=== PATIENT | male | born 1955 | race Caucasian/White ===

== ENCOUNTER → 2018-06-22 13:40 | Outpatient (CLI) | payer MEDICARE, SELFPAY ==
[2018-06-22 14:05] LABS: Basophils % 0.3 % (0.1-2.0); Eosinophils % 0.6 % (0.1-12.0); Hematocrit 39.3 % (42.0-52.0); Hemoglobin 12.5 g/dL (14.1-18.0); Lymphocytes # 0.7 K/mm3 (0.7-4.5); Lymphocytes % 18.9 % (10-50); Mean Corpuscular HGB Conc 31.8 g/dL (31.8-35.4); Mean Corpuscular Hemoglobin 30.5 pg (27.0-31.2); Mean Corpuscular Volume 96.1 fl (80-94); Mean Platelet Volume 7.4 fl (7.4-10.4); Monocytes # 0.3 K/mm3 (0.1-1.0); Neutrophils # 2.6 K/mm3 (1.8-7.8); Neutrophils % 72.3 % (37.0-80.0); Platelet Count 288 K/mm3 (142-424); Red Blood Count 4.09 M/mm3 (4.60-6.20); Red Cell Distribution Width 14.2 % (11.5-17.5); White Blood Count 3.6 K/mm3 (4.8-10.8)
[2018-06-22 14:55] LABS: Alanine Aminotransferase 23 U/L (12-78); Albumin Level 3.9 gm/dL (3.4-5.0); Albumin/Globulin Ratio 1.1 (1.1-1.8); Alkaline Phosphatase 76 U/L (46-116); Anion Gap 10.6 mEq/L (5-15); Aspartate Amino Transferase 12 U/L (15-37); Bilirubin,Total 0.4 mg/dL (0.2-1.0); Blood Urea Nitrogen 12 mg/dL (7-18); Calcium 9.3 mg/dL (8.5-10.1); Carbon Dioxide 31 mmol/L (21.0-32.0); Chloride 103 mmol/L (98-107); Chol/HDL Ratio 3.5 (1-3.5); Cholesterol 172 mg/dL (140-200); Creatinine,Serum 1.17 mg/dL (0.70-1.30); Estimated Glomerular Filt Rate 63 ml/min (>60); GFR (African American) 76 ML/MIN (>60); Globulin 3.4 gm/dl (1.3-3.2); Glucose 106 mg/dL (74-106); HDL Cholesterol 49 mg/dL (27-67); LDL Cholesterol 107 mg/dL (0-130); Potassium 4.6 mmoL/L (3.5-5.1); Sodium 140 mmol/L (136-145); T4 (Thyroxine) 7.2 ug/dl (4.7-13.3); Thyroid Stimulating Hormone 4.52 uIU/ml (0.358-3.740); Total Protein,Serum 7.3 gm/dL (6.4-8.2); Triglycerides 79 mg/dL (30-200); VLDL Cholesterol 16 mg/dL (0-40)
== END ==
PROVIDERS: Visit Provider Nurse Practitioner Family
DX: I10 Essential (primary) hypertension (principal); R53.83 Other fatigue; R22.1 Localized swelling, mass and lump, neck
CPT/HCPCS: 80053; 80061; 82652; 84436; 84443; 85025

== ENCOUNTER → 2018-07-03 14:46 | Outpatient (CLI) | payer MEDICARE, SELFPAY ==
--- NOTE | 2018-07-03 14:47 | US_ITS ---
US soft tissue head and neck Ordering Physician: Carol Ann Berrios Patient Age: 62 years: Male HISTORY: ITS.REASON: nodulepalpable area right inferior neck TECHNIQUE: Ultrasound soft tissues the neck MW? COMPARISON :CT cervical spine April 2012 FINDINGS The significant finding is a ovoid mixed density nodule along the posterior inferior aspect of the right lobe thyroid. On today's ultrasound this measures up to 2 cm length x 1.5 cm AP x 1.6 cm transverse. It is primarily a solid mass but with with at least 3 scattered debris-filled cysts within it centrally in each each measuring 5-6 mm size. On close evaluation of the sagittal images of of the 2012 CT C-spine on that prior 2012 study sagittal image 32, 31, there appears to be is a similar density indenting posterior right lobe of thyroid, which measured up to 2 cm including be vaguely seen retrospect. This would tend to support this is more likely a benign entity.... It again is noted to have a matching concavity along the thyroid gland overlying the thus this mass likely arises from thyroid or parathyroid. It appears that Today's study requested ultrasound of the neck and with this the remainder the neck were closely surveyed including salivary glands, but it did not include optimal full thyroid ultrasound evaluation. A CT neck with could further evaluate and addition support stability and better delineate adjacent great vessels..- However if if preferred may want to proceed follow-up complete thyroid ultrasound, immediate followed by ultrasound-guided FNA biopsy of this nodule... I would note Nodule rather low & appears, with carotid artery immediate along its lateral margin of provide a somewhat narrow target for FNA biopsy but will likely be feasible.... Again I would note that its relative stability since 2012 CT C-spine support its more likely benign nature The overlying right thyroid gland has a convex posterior margin which accommodates this nodule/mass.. Only limited views of the right thyroid, which are unremarkable. The submandibular and parotid glands were imaged and measured with no significant findings identified here The right submandibular gland imaged and unremarkable appears normal size at 3.7 cm length. . The right parotid gland imaged and unremarkable up to 4 cm maximally The left submandibular gland with image measured 3.1 cm in length.. Duct here upper normal prominence. . Left parotid measures 3.55 cm in length &. Unremarkable No additional findings nor adenopathy imaged at survey of the remainder of the neck neck IMPRESSION... there is a 2 cm x 1.5 cm ovoid mixed density mass along the posterior aspect right lobe thyroid. This is mainly solid but with at least 3 or 4 small cystic area centrally. In retrospect I believe this is likely present & appears fairly stable since April 2012 CT C-spine. This supports it is most likely benign, indolent nature. Suggest either follow-up CT with contrast,... OR if preferred proceeding to complete thyroid ultrasound with subsequent FNA biopsy. Note comments in text (Thyroid was not fully imaged today; other areas the neck were surveyed & other salivary glands were imaged and detail but not thyroid)
== END ==
PROVIDERS: PCP Nurse Practitioner Family; Visit Provider Nurse Practitioner Family
DX: R22.1 Localized swelling, mass and lump, neck (principal)
CPT/HCPCS: 76536

== ENCOUNTER → 2018-07-12 13:17 | Outpatient (CLI) | payer MEDICARE, SELFPAY ==
[2018-07-12 13:59] LABS: Basophils % 0.3 % (0.1-2.0); Eosinophils % 0.8 % (0.1-12.0); Hematocrit 40.4 % (42.0-52.0); Hemoglobin 12.9 g/dL (14.1-18.0); Lymphocytes # 0.7 K/mm3 (0.7-4.5); Lymphocytes % 18.5 % (10-50); Mean Corpuscular Hemoglobin 30.8 pg (27.0-31.2); Mean Corpuscular Volume 96.3 fl (80-94); Mean Platelet Volume 8.3 fl (7.4-10.4); Monocytes # 0.3 K/mm3 (0.1-1.0); Monocytes % 8.5 % (1.7-9.3); Neutrophils # 2.8 K/mm3 (1.8-7.8); Platelet Count 263 K/mm3 (142-424); Red Cell Distribution Width 13.8 % (11.5-17.5); White Blood Count 3.9 K/mm3 (4.8-10.8)
== END ==
PROVIDERS: Visit Provider Physician Assistant
DX: D72.9 Disorder of white blood cells, unspecified (principal)
CPT/HCPCS: 85025

== ENCOUNTER → 2018-07-24 12:24 | Outpatient (CLI) | payer MEDICARE, SELFPAY ==
--- NOTE | 2018-07-24 13:30 | US_ITS ---
US thyroid HISTORY: Thyroid nodule ITS.REASON: nodule, or nodules seen on recent ultrasound of the neck ORDERING PHYSICIAN: Carol Ann Berrios PATIENT AGE: 62 years Comparison: None FINDINGS: Right lobe: 3.6 x 0.7 x 1.6 cm. There is a dominant 2 x 1.5 cm hypoechoic nodule with some internal cystic areas along the posterior aspect of the right lobe of the thyroid gland. A neck cystic and solid nodule is present along the upper pole at 7 x 4 mm. The left lobe is 3.4 x 1.3 x 1.6 cm. There is a 3 mm mixed hypoechoic nodule in the mid polar region on the left. IMPRESSION: Dominant 2 x 1.5 cm well-circumscribed hypoechoic nodule along the mid and posterior aspect of the right lobe of the thyroid gland. Some of this nodule is exophytic in nature. Fine-needle aspiration could be performed by sonographic guidance of clinically warranted.
== END ==
PROVIDERS: PCP Nurse Practitioner Family; Visit Provider Nurse Practitioner Family
DX: E04.1 Nontoxic single thyroid nodule (principal)
CPT/HCPCS: 76536

== ENCOUNTER → 2018-08-07 15:37 | Outpatient (CLI) | payer MEDICARE, SELFPAY ==
[2018-08-07 16:33] LABS: Basophils % 0.4 % (0.1-2.0); Eosinophils # 0.1 K/mm3 (0.0-0.4); Eosinophils % 1.2 % (0.1-12.0); Hematocrit 37.5 % (42.0-52.0); Hemoglobin 12.2 g/dL (14.1-18.0); Mean Corpuscular HGB Conc 32.4 g/dL (31.8-35.4); Mean Corpuscular Hemoglobin 30.9 pg (27.0-31.2); Mean Corpuscular Volume 95.3 fl (80-94); Monocytes # 0.4 K/mm3 (0.1-1.0); Monocytes % 7.7 % (1.7-9.3); Neutrophils # 3.1 K/mm3 (1.8-7.8); Neutrophils % 68.5 % (37.0-80.0); Platelet Count 270 K/mm3 (142-424); Red Blood Count 3.94 M/mm3 (4.60-6.20); Red Cell Distribution Width 13.5 % (11.5-17.5); White Blood Count 4.5 K/mm3 (4.8-10.8)
[2018-08-07 17:09] LABS: Free T4 (Free Thyroxine) 0.93 ng/dl (0.76-1.46); Thyroid Stimulating Hormone 4.81 uIU/ml (0.358-3.740)
[2018-08-09 08:43] LABS: Thyroid Peroxidase Antibodies <6 IU/mL (0-34)
[2018-08-11 07:23] LABS: Calcitonin 4.3 pg/mL (0.0-8.4); Thyroid Stimulating Immunoglob <0.10 IU/L (0.00-0.55)
== END ==
PROVIDERS: Visit Provider Otolaryngology
DX: I10 Essential (primary) hypertension (principal); E04.1 Nontoxic single thyroid nodule; S20.211A Contusion of right front wall of thorax, initial encounter
CPT/HCPCS: 36415; 82308; 84439; 84443; 84445; 85025; 86376

== ENCOUNTER → 2018-08-31 09:13 | Outpatient (CLI) | payer MEDICARE, SELFPAY ==
--- NOTE | 2018-08-31 09:22 | US_ITS ---
US FNA Thyroid HISTORY: Dominant right thyroid nodule ITS.REASON: RT THYROID NODULE ORDERING PHYSICIAN: Joshua New MD PATIENT AGE: 62 years COMPARISON: None TECHNIQUE: Following obtaining informed consent, using aseptic technique and local anesthesia with buffered lidocaine, fine-needle aspiration was performed of the nodule of interest using sonographic guidance. 3 passes were made into the nodule with a 25-gauge needle. Specimen was given to cytology. The patient tolerated the procedure well without evidence of immediate complications and left the ultrasound suite in stable condition. CYTOLOGY:Nondiagnostic specimen IMPRESSION: Uneventful fine-needle aspiration of the right thyroid nodule. Specimen however is nondiagnostic. Repeat FNA could be performed with sonographic guidance with pathologist present if clinically desired
== END ==
PROVIDERS: PCP Emergency Medicine; Visit Provider Otolaryngology
DX: E04.1 Nontoxic single thyroid nodule (principal)
CPT/HCPCS: 10005; 76536; 88173

== ENCOUNTER → 2018-09-29 07:09 | Outpatient (CLI) | payer MEDICARE, SELFPAY ==
--- NOTE | 2018-09-29 07:11 | NM_ITS ---
CARDIOLITE SPECT MYOCARDIAL PERFUSION EXERCISE, REST AND STRESS: History: Hypertension, family history, shortness of breath, palpitations and fatigue Procedure: Patient exercised on Pasquale protocol for 7 minutes, resting heart rate was 59 bpm resting blood pressure 142/80, with exercise maximum heart rate achieved was 1 57 bpm which is greater than 85% of the maximum predicted heart rate and a blood pressure was 166/83. Test was stopped due to shortness of breath, patient has good exercise capacity achieved 12.2METS of workload on treadmill, the blood pressure response to exercise was adequate. Electrocardiogram: Resting electrocardiogram shows sinus bradycardia, with exercise occasional premature ventricular complex present, less than 1.[address] segment depression noted from the baseline EKG. The EKG portion of the exercise Myoview is negative for ischemia. Cardiac stress and resting SPECT images: Cardiac stress and resting SPECT images were obtained using technetium 99 Myoview 32.3 mCi stress and 10.7 mCi at rest. Gated SPECT further analysis of segmental wall motion and calculation of the ejection fraction also done. Cardiac stress and resting SPECT images show uniform myocardial activity without segmental perfusion abnormality, computer derived ejection fraction is 46% with no regional wall motion abnormality, right ventricle is normal size and contractility. Conclusion: 1. The EKG portion of the exercise Myoview is negative for ischemia, patient has good exercise capacity achieved 12.2mets of workload on treadmill, the blood pressure response to exercise was adequate, there was no exercise-induced chest discomfort. 2. No scintigraphic evidence of reversible ischemia seen, computer derived ejection fraction is 46% with no regional wall motion abnormality, right ventricle is normal size and contractility. 3. Normal exercise Myoview study.
--- NOTE | 2018-09-29 07:11 | CA_ITS ---
PROCEDURE: 2-D M-mode and color Doppler study INDICATIONS FOR THE TEST: Chest pain COPD Heart Murmur Tobacco Smoking Palpitations Fatigue+ Syncope Edema+ Hypertension+Diabetes Mellitus Rheumatic Fever SOB+BRIONES Obesity Hyperlipidemia Family History HD+ Additional History PATIENT INFORMATION HEIGHT: 65 WEIGHT:181 GENDER: Male B/P:108/71 2-D/M-MODE INTERPRETATION: 2-D MEASUREMENTS OBSERVED VALUES IN CMS Right Ventricular Dimension (RVDd) 3.3 Interventricular Septum (Thickness)(IVsd) 1.0 Left Ventricular Internal Dimensions(LVIDd) 5.3 Left Ventricular Posterior Wall (Thickness)(LVPWd) 0.9 Aortic Root 3.7 Aortic Cusp Separation 1.9 Left Atrial Dimensions (LAD) 3.5 2D 1. Left atrium is mildly enlarged, left ventricle is normal size, there is no concentric left ventricular hypertrophy, borderline left ventricular systolic function, visually estimated ejection fraction approximately 45%, there is no regional wall motion abnormality. 2. The right atrium and right ventricle are mildly enlarged with normal contractility. 3. The aortic valve is minimally thickened and fibrosed. 4. The mitral and tricuspid valve leaflets are minimally thickened. 5. The pulmonic valve is poorly visualized. 6. No significant pericardial effusion noted. DOPPLER INTERROGATION: Doppler interrogation of the aortic, mitral and tricuspid valvular presence of mild aortic, mild mitral and tricuspid regurgitation, tricuspid regurgitation jet velocity is inadequate for calculation of the right ventricular systolic pressure, diastolic parameters are inconclusive. CONCLUSION: 1. Mildly enlarged left atrium, normal left ventricular size, borderline left ventricular systolic function, visually estimated ejection fraction 45% with no regional wall motion abnormality. Diastolic parameters are inconclusive. 2. Mild aortic, mild mitral and tricuspid regurgitation 3. No significant pericardial effusion noted.
--- NOTE | 2018-09-29 09:33 | HMH.ITSHM ---
Current Home Medications as stated by this patient Milad Roberson or car sales representative. [] asa lisinopril
== END ==
PROVIDERS: PCP Nurse Practitioner Family; Visit Provider Nurse Practitioner Family
DX: R06.02 Shortness of breath (principal); G47.9 Sleep disorder, unspecified; I10 Essential (primary) hypertension; R06.83 Snoring; R40.0 Somnolence; R53.83 Other fatigue; R60.9 Edema, unspecified
CPT/HCPCS: 78452; 93017; 93306; A9502

== ENCOUNTER → 2018-10-13 10:58 | Outpatient (CLI) | payer MEDICARE, SELFPAY ==
[2018-10-13 11:30] VITALS: PULSE 76; PULSE 77
== END ==
PROVIDERS: PCP Emergency Medicine; Visit Provider Urology
DX: R06.02 Shortness of breath (principal)
CPT/HCPCS: 94060; 94640

== ENCOUNTER → 2018-10-25 13:47 | Outpatient (CLI) | payer MEDICARE, SELFPAY ==
--- NOTE | 2018-10-25 13:54 | XR_ITS ---
XR chest 2V HISTORY: ITS.REASON: dyspnea ORDERING PHYSICIAN: Gwendolyn Elizondo APRN PATIENT AGE: 62 years COMPARISON: 10/18/2017 FINDINGS: The cardiomediastinal silhouette and pulmonary vascularity are within normal limits. The lungs are clear without infiltrates, suspicious nodules, or pleural effusions. There are degenerative changes of lower thoracic spine with mild reversal of the thoracic kyphosis. There are mild degenerative changes of the AC joint on the right IMPRESSION: No change with no acute finding
== END ==
PROVIDERS: PCP Emergency Medicine; Visit Provider Nurse Practitioner Family
DX: I10 Essential (primary) hypertension (principal); J44.1 Chronic obstructive pulmonary disease with (acute) exacerbation; R06.02 Shortness of breath; R42 Dizziness and giddiness; R53.83 Other fatigue; R60.0 Localized edema; Z87.891 Personal history of nicotine dependence
CPT/HCPCS: 71046

== ENCOUNTER → 2018-11-24 12:50 | Outpatient (CLI) | payer MEDICARE, SELFPAY ==
--- NOTE | 2018-11-24 12:54 | US_ITS ---
US thyroid HISTORY: ITS.REASON: throid nodule ORDERING PHYSICIAN: Joshua New MD PATIENT AGE: 63 years Comparison: None FINDINGS: The right lobe is 3.5 x 0.8 x 1.6 cm. In the upper pole there is a 8 x 6 mm hypoechoic nodule not significantly changed. There is a 2 x 1.5 cm nodule in the lower pole posteriorly not significant change. The left lobe is 3.3 x 1.1 x 1.4 cm and contains a small cyst superiorly 2 mm. IMPRESSION: Overall no change the right-sided nodules. Dominant nodule is present at 2 cm unchanged along the posterior aspect of the right thyroid lobe
== END ==
PROVIDERS: PCP Emergency Medicine; Visit Provider Otolaryngology
DX: E01.0 Iodine-deficiency related diffuse (endemic) goiter (principal)
CPT/HCPCS: 76536

== ENCOUNTER → 2019-04-25 14:02 | Outpatient (CLI) | payer MEDICARE, SELFPAY ==
--- NOTE | 2019-04-25 14:09 | XR_ITS ---
PROCEDURE: XR CHEST 2V CLINICAL HISTORY: dyspnea, lv dysfunction COMPARISON: CXR2V XR chest 2V from 10/11/2017 CXR2V XR chest 2V from 10/18/2017 [id number] XR ribs LT min 3V w CXR1V from 11/15/2017 FINDINGS: The cardiomediastinal silhouette and pulmonary vascularity are within normal limits. The lungs are clear without infiltrates, suspicious nodules, or pleural effusions. There are old left-sided rib fractures. There is mild thoracic lordosis with mild degenerative change in the thoracic spine IMPRESSION: No acute findings. Dictated by: Hammad Mercado MD 04/25/2019 15:47 Electronically signed by Hammad Mercado MD in [place] 04/25/2019 15:47
== END ==
PROVIDERS: PCP Emergency Medicine; Visit Provider Physician Assistant
DX: I10 Essential (primary) hypertension (principal); I51.9 Heart disease, unspecified; R06.02 Shortness of breath
CPT/HCPCS: 71046

== ENCOUNTER → 2019-04-30 14:14 | Outpatient (CLI) | payer MEDICARE, SELFPAY ==
--- NOTE | 2019-04-30 14:14 | CA_ITS ---
APPROVED REPORT EXAM: Comprehensive 2D, Doppler, and color-flow Echocardiogram Rigger Apprentice: Tiffanie Healy RVT Ht: 5 ft 6 in Wt: 184lbs BSA: 1.93 BP: 124/91 mmHg Indications: Lv dysfunction,HTN,SOA,GERD 2D Dimensions LVOT 2.04 cm (M/F) 1.5-2.5 M-Mode Dimensions RVDd 2.44 cm (0.9-2.6) LVDd 5.99 cm (3.5-5.7) LVDs 4.16 cm (3.5-5.7) IVSd 1.08 cm (0.6-1.1) PWd 0.93 cm (0.6-1.1) EF (Teich) 57.20% FS 30.60% EDV (Teich) 179.30 mL ESV (Teich) 76.80 mL LV Diastology E/A Ratio 0.86 Mitral Valve MV A Velocity 67.00 (40-130 cm/s) Left Ventricle Left atrium is mildly enlarged, left ventricle is normal size, visually estimated ejection fraction 50% with no regional wall motion abnormality, grade 1 diastolic dysfunction seen without tissue Doppler evidence of raise left atrial pressure. Right Ventricle Right atrium and right ventricular normal size and contractility. Aortic Valve Aortic valve is minimally thickened and fibrosed, there is no aortic stenosis, there is mild aortic insufficiency. Mitral Valve Mitral valve is grossly normal, there is mild mitral regurgitation. Tricuspid Valve Tricuspid valve is grossly normal, there is mild tricuspid regurgitation. Tricuspid regurgitation jet velocity is inadequate for calculation of the right ventricular systolic pressure. Pulmonic Valve Pulmonic valve is poorly visualized. Great Vessels Aortic root is normal size. Pericardium No significant pericardial effusion noted. Conclusion 1. Mildly enlarged left atrium, normal left ventricular size, mild concentric left ventricular hypertrophy, visually estimated ejection fraction 50% with no regional wall motion abnormality, grade 1 diastolic dysfunction seen without tissue Doppler evidence of raise left atrial pressure. 2. Mild aortic, mild mitral and tricuspid regurgitation. 3. No significant pericardial effusion noted. Electronically signed by : Daryl Stoddard, 05/01/2019 06:22:17
== END ==
PROVIDERS: PCP Emergency Medicine; Visit Provider Physician Assistant
DX: L50.1 Idiopathic urticaria (principal); R06.02 Shortness of breath
CPT/HCPCS: 93306

== ENCOUNTER 2019-09-01 20:09 | Emergency (ER) | payer MEDICARE, SELFPAY ==
[2019-09-01 20:18] VITALS: BP 155/91; PULSE 63; RESP 18; TEMP 36.8; O2SAT 99; BMI 28.8
--- NOTE | 2019-09-01 20:19 | XR_ITS ---
PROCEDURE: XR KNEE LT 3V Patient Age:63Y CLINICAL INDICATION: pain and swelling . No injury COMPARISON: KNEE3R KNEE-3 VIEWS-RT from 01/07/2017 FINDINGS: . Prominent joint effusion suprapatellar bursa left knee seen on the lateral view. chondrocalcinosis throughout medial and lateral compartment.. This is seen with degenerative changes but also seen with with CPPD/pseudogout. If no trauma this could be the basis of the effusion-you may want to consider follow-up aspiration with analysis The joint space is actually fairly well maintained at medial and lateral compartment as well as patellofemoral joint on this nonweightbearing study. There are developing tricompartmental marginal osteophytes reflecting degenerative changes. Focal 8 x 5 mm calcification a just medial to the anterior tibial spine.-Cannot exclude loose body although it may merely reflect an area of dystrophic calcification adjacent ACL insertion, or possibly small synovial osteochondroma (I believe there is similar faint round calcifications seen near the tibial spine at the contralateral right knee) I would note slight undulation minor irregularity in the contour of the lateral tibial plateau on AP view only; some with what may there may be some associated thickening of the cortex lateral aspect proximal femoral metaphysis. With these features I would question possible old remote injury here conceivably. Of the lateral joint space however is well maintained with no posttraumatic narrowing.;. Currently there is no no history of significant trauma thus I doubt acute fracture. However if significant pain with weight-bearing they came on suddenly suddenly after minor trauma, and subsequent swelling/generous joint effusion-You may want consider CT to further evaluate to exclude fracture loose body or other features.. No destructive or erosive changes evident at the knee. Otherwise no significant inflammation of the joint clinically then follow-up with orthopedics Tuesday The bones fairly well mineralized throughout with no focal destructive nor erosive lesion. IMPRESSION: fairly prominent joint effusion suprapatellar bursa. Correlation required . Developing degenerative changes left knee, but with joint space well maintained on this nonweightbearing study . Chondrocalcinosis, most evident medial and lateral compartment:, Can occur with degenerative changes, or CPPD/pseudogout;. Other conditions on differential list less likely Also 5 x 8 mm focal ovoid calcification just medial to anterior tibial spine. Possible loose body vs focal dystrophic or synovial calcification. . No definitive acute fracture. Note slight irregularity & subtle undulation at lateral medial tibial plateau. With lack of history of significant trauma I doubt acute fracture, but could reflect reflect old injury. (However if history minor trauma with sudden onset of severe pain with weight-bearing may want to consider a follow-up CT to exclude such, particularly in view of the generous joint effusion) Dictated by: Damien Byrne MD 09/01/2019 21:19 Electronically signed by Damien Byrne MD in [place] 09/01/2019 21:19
--- NOTE | 2019-09-01 20:25 | HMH.EDUTC ---
[facility] [place] Clinical Impression: Knee pain Qualifiers: Chronicity: unspecified Laterality: left Qualified Code(s): M25.562 - Pain in left knee Disposition: Home, Self-Care Condition on Discharge: Good Instructions: DI for Osteoarthritis, DI for Knee Pain, DI for Arthritis Additional Instructions: *weight bearing as tolerated use crutches to help with walking and ambulating *RICE, Rest the extremity, Ice 15-20 minutes 3-4 times daily, Compress- wear the abraham wrap as discussed as much as possible to help reduce swelling and pain, Elevate the extremity when at rest *Abraham wrap is for support and help control swelling, use it except in the shower. Be sure that is not to tight but not to loose either *Elevate when resting *Over the counter Aleeve as directed on the package as needed for pain an inflammation if you are able to take it. If need something more can take Tylenol in between doses of Ibuprofen/Aleeve to help Immediately follow up with your family doctor for new or worsening of symptoms, or no noticeable improvement over the next 3-5 days Follow up with Dr Lipscomb next week as advised Referrals: Abraham Mcclendon MD [Primary Care Provider] - As needed Brittany Lipscomb MD [Physician] - As needed (Office will call you Tuesday with appointment) Time of Disposition: 21:17 Medical Decision Making - Dioni Inquiry Pt receiving controlled substance: No Dioni was queried for this patient: No Vital Signs: 09/01/19 20:18 09/01/19 21:14 Temperature 98.3 F 98.3 F Temperature Source Oral Oral Pulse Rate 63 Pulse Rate [Right Brachial] 63 Respiratory Rate 18 18 Blood Pressure 155/91 H Blood Pressure [Right Arm] 155/91 H Blood Pressure Mean [Right Arm] 112 Blood Pressure Source Automatic Cuff Blood Pressure Source [Right Arm] Automatic Cuff Blood Pressure Position Sitting Blood Pressure Position [Right Arm] Sitting 02 Sat by Pulse Oximetry 99 Oxygen Delivery Method Room Air Room Air - Lab Data Lab results reviewed: Yes: I reviewed the patient's lab results. Lab Results 09/01/19 20:20: Uric Acid 6.3 Orders (Tests/Meds): ORDERS Category Date Time Status XR knee LT 3V Stat Exams 09/01/19 20:19 Taken - Radiology Data #1 Image(s): Knee Image Reviewed: Yes I reviewed the patient's radiology image Arthritis, will questionable osteophyte will have patient follow up with Orthopedics - Physician Consults Physician Consulted: Deisi Time: 21:00 Reason -: Orthopedic Eval/Care Comment/Response: Spoke with Dr Lipscomb and she viewed xrays Advised to place in knee immobilizer and crutches have patient to RICE area and rest it and her office will call him Tuesday with appointment - Reevaluation(s) Time: 21:16 Reevaluation #1: Patient refused knee immobilizer advised that he would use a abraham wrap [facility] [place] - General Stated complaint: L Knee pain Time Seen by Provider: 09/01/19 20:26 Mode of Arrival: Family Vehicle Source of Information: Patient Limitations: No Limitations Description of Symptoms (Recalled from Triage Doc. by RN): c/o swollen and painful left knee since HEENT Symptoms (Recalled from RN notes): No Resp Symptoms (Recalled from RN notes): No Skin Symptoms (Recalled from RN notes): No MS Symptoms (Recalled from RN notes): Yes Functional Status (Recalled from RN notes): n/a - History of Present Illness Provider Complaint: Patient states that he has a history of arthritis States that on he started having pain and swelling in his left knee that has continued States he hasn't done anything that he knows of States that he hasnt fallen or twisted it that he remembers States that he has had something like this before and it was arthritis and he had to have a shot in his knee to help - Related Data Allergies Allergy/AdvReac Type Severity Reaction Status Date / Time No Known Allergies Allergy Verified 05/30/19 13:21 - Worker's Comp Is this a Work
[2019-09-01 20:39] LABS: Uric Acid 6.3 mg/dl (3.5-8.5)
[2019-09-01 21:14] VITALS: BP 155/91; PULSE 63; RESP 18; TEMP 36.8; O2SAT 99
== END 2019-09-01 21:20 | disposition home or self-care (01) ==
PROVIDERS: Emergency Provider Nurse Practitioner; PCP Emergency Medicine
DX: M25.562 Pain in left knee (principal); K21.9 Gastro-esophageal reflux disease without esophagitis; I10 Essential (primary) hypertension
CPT/HCPCS: G0463; 73562; 84550; 99202

== ENCOUNTER → 2019-09-06 09:25 | Outpatient (CLI) | payer MEDICARE, SELFPAY ==
--- NOTE | 2019-09-06 09:29 | XR_ITS ---
PROCEDURE: XR KNEE LT 4V CLINICAL INDICATION: knee pain Pain and swelling left knee COMPARISON: KNEE3R KNEE-3 VIEWS-RT from 01/07/2017 XR KNEE LT 3V from 09/01/2019 FINDINGS: There are mild osteoarthritic changes of all 3 compartments. Chondrocalcinosis is noted involving medial and lateral meniscus. Loose intra-articular body once again noted just medial to the medial tibial spine along the lateral aspect of the medial compartment not significantly changed. Other findings:None. IMPRESSION: No change osteoarthritis with loose body of the medial compartment Dictated by: Hammad Mercado MD 09/06/2019 13:14 Electronically signed by Hammad Mercado MD in [place] 09/06/2019 13:14
== END ==
PROVIDERS: PCP Emergency Medicine; Visit Provider Orthopaedic Surgery
DX: M25.562 Pain in left knee (principal)
CPT/HCPCS: 73564

== ENCOUNTER → 2019-09-12 08:16 | Outpatient (CLI) | payer MEDICARE, SELFPAY ==
--- NOTE | 2019-09-12 08:16 | MR_ITS ---
PROCEDURE: MR KNEE LT WO CON CLINICAL INDICATION: knee pain Left knee pain COMPARISON: XR KNEE LT 4V from 09/06/2019 TECHNIQUE: Routine multiplanar multi echo sequences are performed without gadolinium enhancement. FINDINGS: The cruciate ligaments appear intact as do the collateral ligaments. The patellar tendon and quadriceps tendon also appears intact. The posterior horn of the medial meniscus has a truncated appearance laterally and may represent a tear of the meniscus. The menisci have an unremarkable appearance otherwise. There are tricompartmental osteoarthritic changes. There are moderate to severe osteoarthritic changes of the patellofemoral joint with a high-riding patella. Hypertrophic changes are present along the posterior aspect of the medial femoral condyle proximally. There is a small area of bone marrow edema involving the medial tibial plateau. Small subarticular cyst is present along the proximal tibia posteriorly at 6 mm. There is a moderate-sized knee joint effusion mainly in the suprapatellar region. Small loculated effusion traverses along the medial and proximal aspect of the tibia and along the medial and anterior aspect of the distal femur region. There is generalized soft tissue swelling. There does appear to be an intra-articular loose body. This is along the lateral aspect of the medial compartment measuring approximately 6 mm hypointense on T1 and T2 and may correspond to the calcific density noted on this x-ray. IMPRESSION: 1. Truncated appearance of the posterior horn of the medial meniscus laterally and may represent a meniscal tear. 2. Moderate to severe osteoarthritic changes with knee joint effusion. 3. There is a small amount of bone marrow edema along the medial tibial plateau and the posterior interspinous region of the proximal tibia nonspecific and could be related to trauma or bone marrow edema from the underlying arthritic change. Subarticular cystic change involves the proximal tibia centrally and posteriorly 4. 6 mm loose body along the lateral aspect of the medial tibial plateau slightly anterior Dictated by: Hammad Mercado MD 09/13/2019 16:26 Electronically signed by Hammad Mercado MD in [place] 09/13/2019 16:26
== END ==
PROVIDERS: PCP Emergency Medicine; Visit Provider Orthopaedic Surgery
DX: M25.562 Pain in left knee (principal)
CPT/HCPCS: 73721

== ENCOUNTER 2020-07-08 17:51 | Emergency (ER) | payer MEDICARE, SELFPAY ==
[2020-07-08 17:53] VITALS: BP 146/80; PULSE 87; RESP 16; TEMP 36.8; O2SAT 98; BMI 29.2
--- NOTE | 2020-07-08 18:12 | XR_ITS ---
PROCEDURE: XR ANKLE RT MIN 3V CLINICAL INDICATION: injury Pain COMPARISON: No exams were available for comparison FINDINGS: No fracture or dislocation. There are mild osteoarthritic changes. There is mild soft tissue swelling laterally. IMPRESSION: Soft tissue swelling with mild osteoarthritis Dictated by: Hammad Mercado MD 07/09/2020 06:07 Hammad Mercado MD in [place] 07/09/2020 06:07
--- NOTE | 2020-07-08 18:12 | XR_ITS ---
PROCEDURE: XR FOOT RT MIN 3V CLINICAL INDICATION: injury Posttraumatic pain COMPARISON: CR FTR3 FOOT-RT-3 VIEWS from 07/30/2013 CR FTR3 FOOT-RT-3 VIEWS from 12/03/2014 CR FTL3 FOOT-LT-3 VIEWS from 12/03/2014 FINDINGS: No fracture or dislocation. No lytic or blastic change. There is normal mineralization. Mild osteoarthritic changes are present at the 1st metatarsophalangeal joint and at the tarsal metatarsal junction as well as the navicular cuneiform joint Other findings:None. IMPRESSION: No acute fracture. Mild osteoarthritis Dictated by: Hammad Mercado MD 07/09/2020 06:06 Hammad Mercado MD in [place] 07/09/2020 06:06
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
--- NOTE | 2020-07-08 18:30 | CT_ITS ---
PROCEDURE: CT ANKLE RT WO CON CLINICAL HISTORY: injury Posttraumatic pain COMPARISON: No exams were available for comparison TECHNIQUE: Axial images obtained with sagittal and coronal reformats. All CT scans at the facility use one or more dose reduction, viz: automated exposure control, ma/kV adjustment per patient size (including targeted exams where dose is matched to indication, i.e. head), or iterative reconstruction technique. FINDINGS: No fracture or dislocation is evident. Multiple small periarticular calcifications are present at the ankle which may be due to degenerative changes or chronic posttraumatic changes. Calcifications may represent periarticular capsular calcification. The talar dome has an unremarkable appearance. There are 3 small calcifications in the posterior lateral mortise joint distribution which could represent small intra-articular loose bodies measuring between 1 and 3 mm. . There is mild soft tissue swelling about the ankle. IMPRESSION: 1. No definite acute fracture. 2. Numerous small periarticular calcifications which may be due to chronic degenerative or posttraumatic calcifications with possible small loose bodies in the posterior lateral joint space. 3. Soft tissue swelling. MRI may provide further evaluation if symptoms persist. Dictated by: Hammad Mercado MD 07/09/2020 12:34 Hammad Mercado MD in [place] 07/09/2020 12:34
[2020-07-08 20:12] VITALS: BP 148/78; PULSE 82; RESP 16; TEMP 36.8; O2SAT 97
== END 2020-07-08 20:15 | disposition home or self-care (01) ==
PROVIDERS: Emergency Provider Emergency Medicine; PCP Emergency Medicine
DX: S93.401A Sprain of unspecified ligament of right ankle, initial encounter (principal); V59.3XXA Occupant (driver) (passenger) of pick-up truck or van injured in unspecified nontraffic accident, initial encounter; Y92.89 Other specified places as the place of occurrence of the external cause; K21.9 Gastro-esophageal reflux disease without esophagitis; F41.9 Anxiety disorder, unspecified; I10 Essential (primary) hypertension
CPT/HCPCS: 73610; 73630; 73700; 99282

== ENCOUNTER 2021-02-24 19:36 | Emergency (ER) | payer MEDICARE, SELFPAY ==
[2021-02-24 19:37] VITALS: BP 110/66; PULSE 89; RESP 21; TEMP 38.2; O2SAT 97; BMI 27.4
--- NOTE | 2021-02-24 19:59 | XR_ITS ---
PROCEDURE INFORMATION: Exam: XR Chest Exam date and time: 02/24/21 07:59 PM Age: 65 years old Clinical indication: Patient HX: Cough and not feeling well -- possible covid test pending TECHNIQUE: Imaging protocol: XR of the chest. Views: 2 views. COMPARISON: CR XR CHEST 2V 05/09/19 08:29 AM FINDINGS: Lungs: Patchy bilateral pulmonary infiltrates characteristic of COVID-19. Pleural spaces: Unremarkable. No pleural effusion. No pneumothorax. Heart/Mediastinum: Unremarkable. No cardiomegaly. Bones/joints: Unremarkable. IMPRESSION: Patchy bilateral pulmonary infiltrates characteristic of COVID-19.
[2021-02-24 20:00] VITALS: BP 128/54; PULSE 78; O2SAT 94
[2021-02-24 20:06] LABS: Influenza A, PCR Not Detected (NotDetected); Influenza B, PCR Not Detected (NotDetected)
[2021-02-24 20:12] LABS: Basophils % 0.5 % (0.1-2.0); Eosinophils % 0.1 % (0.1-12.0); Hematocrit 39.6 % (42.0-52.0); Hemoglobin 12.9 g/dL (14.1-18.0); Lymphocytes # 0.5 K/mm3 (0.7-4.5); Lymphocytes % 11.6 % (10-50); Mean Corpuscular HGB Conc 32.7 g/dL (31.8-35.4); Mean Corpuscular Hemoglobin 31.4 pg (27.0-31.2); Mean Corpuscular Volume 96.1 fl (80-94); Mean Platelet Volume 8.6 fl (7.4-10.4); Monocytes # 0.2 K/mm3 (0.1-1.0); Monocytes % 5.7 % (1.7-9.3); Neutrophils # 3.2 K/mm3 (1.8-7.8); Neutrophils % 82.2 % (37.0-80.0); Platelet Count 223 K/mm3 (142-424); Red Blood Count 4.12 M/mm3 (4.60-6.20); Red Cell Distribution Width 13.9 % (11.5-17.5); White Blood Count 3.8 K/mm3 (4.8-10.8)
[2021-02-24 20:41] LABS: Alanine Aminotransferase 32 U/L (12-78); Albumin Level 3.9 g/dl (3.5-5.0); Albumin/Globulin Ratio 1.1 (1.1-1.8); Alkaline Phosphatase 160 U/L (38-126); Anion Gap 12.3 mEq/L (5-15); Aspartate Amino Transferase 89 U/L (17-59); Bilirubin,Total 0.4 mg/dl (0.2-1.3); Blood Urea Nitrogen 27 mg/dl (9-20); Calcium 8.8 mg/dl (8.4-10.2); Carbon Dioxide 26 mmol/L (22.0-30.0); Chloride 102 mmol/L (98-107); Creatinine Clearance Estimated 53 mL/min (50-200); Estimated Glomerular Filt Rate 47 ml/min (>60); GFR (African American) 57 ML/MIN (>60); Globulin 3.4 g/dL (1.3-3.2); Glucose 120 mg/dl (74-100); Potassium 4.3 mmoL/L (3.5-5.1); Sodium 136 mmol/L (136-145); Total Protein,Serum 7.3 g/dl (6.3-8.2)
[2021-02-24 20:43] LABS: Coronavirus 19, PCR Detected (NotDetected)
[2021-02-24 20:43] LABS: Erythrocyte Sedimentation Rate 66 mm/hr (0-20)
[2021-02-24 20:47] LABS: C-Reactive Protein 142.3 mg/L (0-4)
--- NOTE | 2021-02-24 21:09 | HMH.EDURI ---
ED Disposition Clinical Impression: COVID-19 Disposition: Home, Self-Care Condition on Discharge: Fair Instructions: DI for COVID-19 (Suspected or Confirmed ) Additional Instructions: use meds and call pcp for follow up Prescriptions: dexAMETHasone [Decadron] 6 mg PO DAILY #7 tab Transmission Status: Pending to [id number] Referrals: Abraham Mcclendon MD [Primary Care Provider] - - Critical Care Critical Care Time: No Attestation: On 02/24/21, the high probability of a clinically significant, sudden or life threatening deterioration of the following system(s) required my full and direct attention, intervention and personal management. The time I documented below is in addition to time spent performing reported procedures but includes the following listed in this critical care notation. Medical Decision Making - Medical Records Medical records reviewed: Yes: I reviewed the patient's medical records. - Dioni Inquiry Pt receiving controlled substance: No Vital Signs: 02/24/21 19:37 02/24/21 20:00 Temperature 100.7 F H Temperature Source Oral Pulse Rate 78 Pulse Rate [Right Radial] 89 Respiratory Rate 21 Blood Pressure 128/54 L Blood Pressure [Right Arm] 110/66 Blood Pressure Mean [Right Arm] 80 Blood Pressure Source [Right Arm] Automatic Cuff Blood Pressure Position [Right Arm] Sitting 02 Sat by Pulse Oximetry 97 94 L Oxygen Delivery Method Room Air - Lab Data Lab results reviewed: Yes: I reviewed the patient's lab results. Lab Results 02/24/21 19:50: SARS-CoV-2 (PCR) Detected A, Influenza A Untype (PCR) Not detected, Influenza Type B (PCR) Not detected 02/24/21 20:02: WBC 3.8 L, RBC 4.12 L, Hgb 12.9 L, Hct 39.6 L, MCV 96.1 H, MCH 31.4 H, MCHC 32.7, RDW 13.9, Plt Count 223, MPV 8.6, Neut % (Auto) 82.2 H, Lymph % (Auto) 11.6, Graves % (Auto) 5.7, Eos % (Auto) 0.1, Baso % (Auto) 0.5, Neut # (Auto) 3.2, Lymph # (Auto) 0.5 L, [place] # (Auto) 0.2, Eos # (Auto) 0.0, Baso # (Auto) 0.0, ESR 66 H 02/24/21 20:02: Sodium 136, Potassium 4.3, Chloride 102, Carbon Dioxide 26, Anion Gap 12.3, BUN 27 H, Creatinine 1.50 H, Estimated Creat Clear 53, Estimated GFR 47 L, Est GFR ( Amer) 57 L, Glucose 120 H, Calcium 8.8, Ferritin 602 H, Total Bilirubin 0.4, AST 89 H, ALT 32, Alkaline Phosphatase 160 H, C-Reactive Protein 142.3 H, Total Protein 7.3, Albumin 3.9, Globulin 3.4 H, Albumin/Globulin Ratio 1.1, Procalcitonin 0.200 Result diagrams: 02/24/21 20:02 02/24/21 20:02 Orders (Tests/Meds): ED MEDICATIONS Generic Name Dose Route Start Last Admin Trade Name Freq PRN Reason Stop Dose Admin Sodium Chloride 1,000 mls @ 999 mls/hr 02/24/21 20:00 02/24/21 20:06 Sod Chlor 0.9% 1000ml Bag IV 02/24/21 21:00 999 mls/hr .Q1H1M VI Administration Sodium Chloride 1,000 mls @ 999 mls/hr 02/24/21 21:15 Sod Chlor 0.9% 1000ml Bag IV 02/24/21 22:15 .Q1H1M VI Discontinued Medications Generic Name Dose Route Start Last Admin Trade Name Freq PRN Reason Stop Dose Admin Acetaminophen 1,000 mg 02/24/21 19:59 02/24/21 20:06 Acetaminophen 500mg Tab PO 02/24/21 20:00 1,000 mg ONCE ONE Administration Dexamethasone Sodium Phosphate 10 mg 02/24/21 19:59 02/24/21 20:06 Dexamethasone 4mg/Ml 5ml Mdv IV 02/24/21 20:00 10 mg ONCE ONE Administration - Radiology Data #1 Image(s): Chest Image Reviewed: Yes I have reviewed radiologist's interpretation Preliminary Findings: Abnormal (see report ) Medical Decision Narrative: has covid-19 on xray and wishes to try at home and will place on steroids and place on list for regen-cov URI/Sore Throat HPI - General Chief Complaint: Upper Respiratory Infection Stated Complaint: fluid in ears, congestion, back pain, cough Time Seen by Provider: 02/24/21 21:09 Mode of Arrival: Ambulatory Source of Information: Patient, Medical Record Limitations: No Limitations Description of Symptoms (Recalled from ER Triag
[2021-02-24 21:15] VITALS: BP 99/53; PULSE 86; O2SAT 94
[2021-02-24 21:19] LABS: Ferritin 602 ng/ml (17.9-464)
--- NOTE | 2021-02-24 21:54 | PC.NURSE ---
Pt adamant he was ready to go and don't wanna be here until 11 o'clock. Pt's family member notified and given d/c education upon discharge.
[2021-02-24 21:56] VITALS: BP 114/63; PULSE 76; RESP 20; TEMP 36.9; O2SAT 96
== END 2021-02-24 21:56 | disposition home or self-care (01) ==
PROVIDERS: Emergency Provider Emergency Medicine; PCP Emergency Medicine
DX: U07.1 COVID-19 (principal); I10 Essential (primary) hypertension; K21.9 Gastro-esophageal reflux disease without esophagitis; F41.9 Anxiety disorder, unspecified; Z79.899 Other long term (current) drug therapy
CPT/HCPCS: 71046; 80053; 82728; 84145; 85025; 85651; 86140; 96365; 96366; 96375; 99283; C9803; U0003; U0005

== ENCOUNTER 2021-02-27 20:35 | Emergency (ER) | payer MEDICARE, SELFPAY ==
[2021-02-27 20:36] VITALS: BP 141/79; PULSE 78; RESP 26; TEMP 36.9; O2SAT 84; BMI 27.6
[2021-02-27 20:50] VITALS: BMI 27.6
--- NOTE | 2021-02-27 20:51 | CT_ITS ---
PROCEDURE INFORMATION: Exam: CTA Chest With Contrast Exam date and time: 02/27/2021 8:51 PM Age: 65 years old Clinical indication: Cough and shortness of breath; Additional info: SOA cough covid TECHNIQUE: Imaging protocol: Computed tomographic angiography of the chest with contrast. 3D rendering (Not supervised by radiologist): MIP and/or 3D reconstructed images were created by the technologist. Radiation optimization: All CT scans at this facility use at least one of these dose optimization techniques: automated exposure control; mA and/or kV adjustment per patient size (includes targeted exams where dose is matched to clinical indication); or iterative reconstruction. Contrast material: ISOVUE 370; Contrast volume: 70 ml; Contrast route: INTRAVENOUS (IV); COMPARISON: CR XR CHEST 2V 02/24/2021 8:03 PM FINDINGS: Pulmonary arteries: Normal. No pulmonary emboli. Aorta: No aortic aneurysm. No aortic dissection. Lungs: Multifocal bilateral ground-glass pulmonary opacities. Pleural spaces: No pneumothorax. No pleural effusion. Heart: No cardiomegaly. No pericardial effusion. Lymph nodes: Enlarged mediastinal lymph nodes measuring up to 10 mm. Diaphragm: Small hiatal hernia. Bones/joints: No acute fracture. Soft tissues: No significant swelling. IMPRESSION: Multifocal bilateral ground-glass pulmonary opacities which are nonspecific but likely infectious or inflammatory and would be compatible with the provided history of covid.
[2021-02-27 20:57] LABS: Basophils % 0.2 % (0.1-2.0); Hematocrit 39.1 % (42.0-52.0); Hemoglobin 12.4 g/dL (14.1-18.0); Lymphocytes # 0.4 K/mm3 (0.7-4.5); Lymphocytes % 3.8 % (10-50); Mean Corpuscular HGB Conc 31.7 g/dL (31.8-35.4); Mean Corpuscular Hemoglobin 31.3 pg (27.0-31.2); Mean Corpuscular Volume 98.8 fl (80-94); Mean Platelet Volume 8.3 fl (7.4-10.4); Monocytes # 0.6 K/mm3 (0.1-1.0); Monocytes % 5.8 % (1.7-9.3); Neutrophils # 9.1 K/mm3 (1.8-7.8); Neutrophils % 90.3 % (37.0-80.0); Platelet Count 329 K/mm3 (142-424); Red Blood Count 3.96 M/mm3 (4.60-6.20); Red Cell Distribution Width 14.3 % (11.5-17.5); White Blood Count 10.1 K/mm3 (4.8-10.8)
[2021-02-27 20:58] LABS: MANUAL DIFFERENTIAL MANUAL DIFFERENTIAL (MANUAL DIFF)
[2021-02-27 21:00] LABS: ABG Base Excess -4.2 mmol/L (-2.4-2.3); ABG HCO3 19.6 mmhg (22.0-26.0); ABG Oxygen Saturation 89 % (90-100); ABG PCO2 28.2 mmhg (35.0-45.0); ABG PH 7.46 mmol/L (7.35-7.45); ABG PO2 54.7 mmhg (80-100); ABG TCO2 20.5 mmhg (23-27)
[2021-02-27 21:02] LABS: Allen's Test ACCEPTABLE; Oxygen 2LPM %; Source R RADIAL
--- NOTE | 2021-02-27 21:08 | ECG_ITS ---
APPROVED REPORT Exam: Resting ECG HR:63 bpm ECG Measurements Heart Rate 63 AXES OH 136 P 67 QRSd 126 QRS -23 QT 412 T 42 QTc 421 Conclusion Normal sinus rhythm Nonspecific intraventricular block Abnormal ECG Electronically signed by : Mike Choudhury MD 02/28/2021 08:56:07
[2021-02-27 21:10] LABS: Alanine Aminotransferase 48 U/L (12-78); Albumin Level 3.7 g/dl (3.5-5.0); Albumin/Globulin Ratio 1.1 (1.1-1.8); Alkaline Phosphatase 139 U/L (38-126); Aspartate Amino Transferase 68 U/L (17-59); Bilirubin,Total 0.4 mg/dl (0.2-1.3); Blood Urea Nitrogen 20 mg/dl (9-20); Calcium 8.9 mg/dl (8.4-10.2); Carbon Dioxide 27 mmol/L (22.0-30.0); Chloride 109 mmol/L (98-107); Creatinine Clearance Estimated 80 mL/min (50-200); Estimated Glomerular Filt Rate 84 ml/min (>60); GFR (African American) 102 ML/MIN (>60); Globulin 3.5 g/dL (1.3-3.2); Glucose 173 mg/dl (74-100); Hypochromasia 1+; Lymphocytes % 3 % (10-50); Macrocytosis 1+; Monocytes % 1 % (2-9); Neutrophils % 90 % (42-76); Platelet Estimate Normal; Sodium 143 mmol/L (136-145); Total Cells Counted 100; Total Protein,Serum 7.2 g/dl (6.3-8.2)
[2021-02-27 21:20] LABS: Erythrocyte Sedimentation Rate 108 mm/hr (0-20)
--- NOTE | 2021-02-27 21:24 | HMH.EDSOB ---
ED Disposition Clinical Impression: Acute respiratory failure due to COVID-19 Disposition: Left Against Medical Advice Condition on Discharge: Good Instructions: DI for COVID-19 (Suspected or Confirmed ) Additional Instructions: fluids and see pcp for follow up Referrals: Abraham Mcclendon MD [Primary Care Provider] - - Critical Care Critical Care Time: No Attestation: On 02/27/21, the high probability of a clinically significant, sudden or life threatening deterioration of the following system(s) required my full and direct attention, intervention and personal management. The time I documented below is in addition to time spent performing reported procedures but includes the following listed in this critical care notation. Medical Decision Making - Medical Records Medical records reviewed: Yes: I reviewed the patient's medical records. - Dioni Inquiry Pt receiving controlled substance: No Vital Signs: 02/27/21 20:36 Temperature 98.4 F Temperature Source Oral Pulse Rate [Right] 78 Respiratory Rate 26 H Blood Pressure [Right Arm] 141/79 H Blood Pressure Mean [Right Arm] 99 02 Sat by Pulse Oximetry 84 L Oxygen Delivery Method Room Air - Lab Data Lab results reviewed: Yes: I reviewed the patient's lab results. Lab Results 02/27/21 20:47: WBC 10.1, RBC 3.96 L, Hgb 12.4 L, Hct 39.1 L, MCV 98.8 H, MCH 31.3 H, MCHC 31.7 L, RDW 14.3, Plt Count 329 D, MPV 8.3, Neut % (Auto) 90.3 H, Lymph % (Auto) 3.8 L, [place] % (Auto) 5.8, Eos % (Auto) 0.0 L, Baso % (Auto) 0.2, Neut # (Auto) 9.1 H, Lymph # (Auto) 0.4 L, [place] # (Auto) 0.6, Eos # (Auto) 0.0, Baso # (Auto) 0.0, Total Counted 100, Neutrophils % (Manual) 90 H, Band Neutrophils % 6.0, Lymphocytes % (Manual) 3 L, Monocytes % (Manual) 1 L, Platelet Estimate Normal, Hypochromasia 1+, Macrocytosis 1+, ESR 108 H 02/27/21 20:47: Sodium 143, Potassium 4.0, Chloride 109 H, Carbon Dioxide 27, Anion Gap 11.0, BUN 20, Creatinine 0.90, Estimated Creat Clear 80, Estimated GFR 84, Est GFR ( Amer) 102, Glucose 173 H, Calcium 8.9, Total Bilirubin 0.4, AST 68 H, ALT 48, Alkaline Phosphatase 139 H, Troponin I < 0.01, C-Reactive Protein 63.0 H, Total Protein 7.2, Albumin 3.7, Globulin 3.5 H, Albumin/Globulin Ratio 1.1, Procalcitonin 0.104 02/27/21 20:52: Specimen Source R radial, O2 % 2lpm, ABG pH 7.46 H, ABG pCO2 28.2 L, ABG pO2 54.7 L, ABG HCO3 19.6 L, ABG Total CO2 20.5 L, ABG O2 Saturation 89 L, ABG Base Excess -4.2 L, Hammad Test Acceptable Result diagrams: 02/27/21 20:47 02/27/21 20:47 Orders (Tests/Meds): ED MEDICATIONS Generic Name Dose Route Start Last Admin Trade Name Freq PRN Reason Stop Dose Admin Sodium Chloride 1,000 mls @ 999 mls/hr 02/27/21 21:00 02/27/21 21:06 Sod Chlor 0.9% 1000ml Bag IV 02/27/21 22:00 999 mls/hr .Q1H1M VI Administration Discontinued Medications Generic Name Dose Route Start Last Admin Trade Name Freq PRN Reason Stop Dose Admin Dexamethasone Sodium Phosphate 10 mg 02/27/21 20:52 02/27/21 21:06 Dexamethasone 4mg/Ml 5ml Mdv IV 02/27/21 20:53 Not Given ONCE ONE Iopamidol 70 ml 02/27/21 21:58 02/27/21 21:59 Iopamidol-370 (76%);100ml Bottle IV 02/27/21 21:59 70 ml ONCE ONE Administration Sodium Chloride 40 ml 02/27/21 21:58 02/27/21 21:59 0.9 % Sodium Chloride 50 Ml Vial IV 02/27/21 21:59 40 ml ONCE ONE Administration Sodium Chloride 10 ml 02/27/21 21:58 02/27/21 21:59 Sodium Chloride 0.9% 10ml Syr (Rad Only) IV 02/27/21 21:59 10 ml ONCE ONE Administration ORDERS Category Date Time Status Troponin I Q3H Lab 02/27/21 23:52 Ordered Troponin I Q3H Lab 02/28/21 02:52 Ordered - Radiology Data #1 Image(s): Chest Image Reviewed: Yes I have reviewed radiologist's interpretation Preliminary Findings: Abnormal - CT Data CT Scan: Chest Time Received: 23:[address] Reviewed: Yes: I have viewed the radiologist's interpretation Preliminary Findings: Abnormal (no pul
[2021-02-27 21:29] LABS: Procalcitonin 0.104 ng/mL (0.0-2.0)
[2021-02-27 21:37] LABS: Troponin I < 0.01 ng/ml (0.00-0.034)
--- NOTE | 2021-02-27 21:50 | XR_ITS ---
PROCEDURE INFORMATION: Exam: XR Chest Exam date and time: 02/27/2021 9:50 PM Age: 65 years old Clinical indication: Cough and shortness of breath; Additional info: SOA cough covid TECHNIQUE: Imaging protocol: XR of the chest. Views: 1 view. COMPARISON: CR XR CHEST 2V 02/24/2021 8:03 PM FINDINGS: Lungs: Multifocal bilateral ground-glass pulmonary opacities. Pleural spaces: No pneumothorax. Heart/Mediastinum: No cardiomegaly. Bones/joints: No acute abnormality. IMPRESSION: Multifocal bilateral ground-glass pulmonary opacities which are nonspecific but likely infectious or inflammatory and would be compatible with the provided history of covid.
[2021-02-28 02:15] VITALS: BP 120/60; PULSE 86; RESP 16; TEMP 37.2; O2SAT 99
== END 2021-02-27 23:30 | disposition left against medical advice (07) ==
PROVIDERS: Emergency Provider Emergency Medicine; PCP Emergency Medicine
DX: U07.1 COVID-19 (principal); J96.90 Respiratory failure, unspecified, unspecified whether with hypoxia or hypercapnia; F41.9 Anxiety disorder, unspecified; K21.9 Gastro-esophageal reflux disease without esophagitis; I10 Essential (primary) hypertension; Z79.899 Other long term (current) drug therapy
CPT/HCPCS: 71045; 71275; 80053; 82803; 84145; 84484; 85007; 85025; 85651; 86140; 93005; 99283; Q9967